=== PATIENT | male | born 1980 | race Caucasian/White ===

== ENCOUNTER 2021-10-10 10:42 | Emergency (ER) | payer MEDICAID ==
[~2021-10-10] VITALS: Ht 193 cm; Wt 131.8 kg
[2021-10-10 11:35] VITALS: BP 149/98
[2021-10-10] MEDS ORDERED: CEPH-585 PO (13:09)
== END 2021-10-10 13:41 | disposition home or self-care (01) ==
LOC: ER 10:43
DX: S60.869A Insect bite (nonvenomous) of unspecified wrist, initial encounter (principal); F12.90 Cannabis use, unspecified, uncomplicated; W57.XXXA Bitten or stung by nonvenomous insect and other nonvenomous arthropods, initial encounter; Y93.89 Activity, other specified; Y92.89 Other specified places as the place of occurrence of the external cause; Y99.8 Other external cause status
CPT/HCPCS: 99283